=== PATIENT | female | born 1935 | race Caucasian/White ===

== ENCOUNTER 2016-07-28 00:38 | Day surgery (SDC) | payer MEDICARE, MEDICAID ==
[2016-07-28] VITALS (8 sets, daily range): BP systolic 133–175; BP diastolic 57–73; PULSE 57–66; RESP 12–24; O2SAT 98–99
[~2016-07-28] VITALS: Ht 265.4 cm; Wt 78.4 kg
[~2016-07-28 00:38] MED LIST: ATOR20TA PO; CHOL500011 PO; FUR20 PO; Heparin 1,000 Units/mL 2 mL Inj INJ SCH; IMAT400T PO; METO25TA6 PO; PROC5TAB50 PO; TRAM50TA2 PO
[2016-07-28] MEDS ORDERED: Ondansetron 2 mg/mL 2 mL Inj ONE (00:39)
[2016-07-28] MEDS ORDERED: Propofol 10,000 mCg/mL 20 mL Inj ONE (00:39)
[2016-07-28] MEDS ORDERED: Lactated Ringer's 1,000 ML IV SCH (05:00)
[2016-07-28] MEDS ORDERED: POLY17PO2 PO (06:53)
[2016-07-28] MEDS ORDERED: MAGN400O4 PO (06:53)
[2016-07-28] MEDS ORDERED: PROC5TAB PO (06:53)
[2016-07-28] MEDS ORDERED: MULT-666 PO (06:53)
[2016-07-28] MEDS ORDERED: SENN17.27 PO (06:53)
[2016-07-28] MEDS ORDERED: IMAT100T9 PO (06:53)
[2016-07-28] MEDS ORDERED: BISA10EN RC (06:53)
[2016-07-28 07:29] LABS: BASOPHILS % (AUTO) 0.2 % (0-3); EOSINOPHILS % (AUTO) 1.2 % (0-5); MONOCYTES % (AUTO) 4.5 % (4-12); Mean Corpuscular Hemoglobin 28.2 pg (27.0-35.0); Mean Corpuscular Volume 84.9 fL (81-100); NEUTROPHILS % (AUTO) 87.4 % (40-74); Platelet Count 322 bil/L (150-400)
[2016-07-28] MEDS ORDERED: IMAT400T7 PO (07:33)
[2016-07-28] MEDS ORDERED: Heparin 1,000 Units/mL 2 mL Inj INJ SCH (08:00)
--- NOTE | 2016-07-28 08:02 | PCM.HPANE ---
Patient Data Date of Service: Jul 28, 2016 Surgeon Admitting Provider: Attending Provider:Phillip gAudelo MD Primary Care Physician:Jemima Steve MD Other Provider:Jesse Burnett Anesthesia Reason for Visit Chronic Myeloid Leukemia Ht/WT & BMI Height (Feet): 8 Height (Inches): 8.50 Weight (Kilograms): 78.400 Body Mass Index 11.16 Allergies Coded Allergies: whey (Verified Allergy, Intermediate, 12/26/15) Rhame (Verified Allergy, Unknown, 12/26/15) RASH codeine (Verified Allergy, Unknown, RASH FROM YEARS AGO, 07/28/16) nausea and vomiting cortisone (Verified Allergy, Unknown, 12/26/15) strawberry (Verified Allergy, Unknown, 12/26/15) RASH Past Anesthesia History Anesthesia History: Denies:: Abnormal Airway, Anesthesia Reactions, Difficult Intubation Diabetes History Hx Diabetes?: No MRSA MRSA: No Medications Hypertension Medication: Yes Home Meds Incl Beta Judy: Yes Date Beta Judy Taken: Jul 28, 2016 Time Beta Judy Taken: 05:30 Active Scripts Metoprolol Tartrate 25 Mg Jatrox65 Mg PO BID #30 TABLET Prov:Rupesh Joseph MD 12/15/15 Reported Medications Imatinib Mesylate 400 Mg Xubgcn087 Mg PO DAILY 07/28/16 Magnesium Hydroxide (Milk of Magnesia)400 Mg/5 Ml Oral.qesz381 Mg PO 07/28/16 Atorvastatin (Lipitor)20 Mg Osfild45 Mg PO HS Ref 0 06/23/16 Furosemide 20 Mg Tab20 Mg PO prn for weight gain Ref 0 12/29/15 Tramadol 50 Mg Feqnin23 Mg PO Q6HRS PRN For Pain Ref 0 12/29/15 Discontinued Reported Medications Sennosides (Senna-Extra)17.2 Mg Vefvnm07.2 Mg PO HS 07/28/16 Prochlorperazine Maleate (Prochlorperazine)5 Mg Tablet5 Mg PO q6 PRN For Nausea/ Vomiting Ref 0 07/28/16 Polyethylene Glycol 3350 17 Gm Powd.pack17 Gm PO 07/28/16 Multivitamin (Once Daily)1 Each Tablet1 Each PO DAILY 07/28/16 Bisacodyl (Bisacodyl Rectal)10 Mg/30 Ml Enema10 Mg RC PRN PRN For Constipation 07/28/16 Imatinib Mesylate 100 Mg Fczoaq215 Mg PO DAILY 07/28/16 Cholecalciferol (Vitamin D3) (Vitamin D3)5,000 Unit Tablet5,000 Unit PO DAILY 03/01/16 Imatinib Mesylate (Gleevec)400 Mg Rczeip698 Mg PO DAILY 03/01/16 Prochlorperazine Maleate (Compazine)5 Mg Tablet5-10 Mg PO QID PRN For Nausea 12/11/15 History History of ENT Problems?: Yes HEENT History: Positive for:: Cataracts Dysphagia (recently) Denies:: Abnormal Airway Difficult Intubation Hearing Problem Hx of Heart Problems?: Yes Cardiovascular History: Positive for:: Hypertension Irregular Heartbeat (BRADYCARDIA, chronic afib) Denies:: Abdominal Aortic Aneurism Atrial Fibrillation Cardiac Surgery Chest Pain Congestive Heart Failure Edema Heart Murmur Pacemaker Rheumatic Fever Thrombophlebitis Valvular Heart Disease Other Cardiac History: "arrythmia" Hx of Respiratory Problem?: No Respiratory History: Denies:: Asthma COPD Chest Surgery Cough Dyspnea Emphysema Hemoptysis Oxygen Administration Pneumonia Pulmonary Embolism Tuberculosis Hx Neurologic Problems?: Yes Neurological History: Positive for:: CVA (TIA) Headaches (recent subdural bleed) Denies:: Alzheimer's Disease Dementia Dizziness Multiple Sclerosis Parkinson's Disease Seizures Hx of GI Problems?: No Gastrointestinal History: Denies:: Cirrhosis Diverticulitis Gastroesphageal Reflux Gastrointestinal Bleeding Heartburn Hepatitis Hiatal Hernia Rectal Bleeding Hx of Problems?: Yes Genitourinary History: Positive for:: Urinary Tract Infection (h/o E.coli UTI 11/2015) Denies:: HX of Hemodialysis Kidney Stones HX of Peritoneal Dialysis: No Female Hx: Denies:: Currently Endometriosis Pelvic Inflammatory Problems with Breasts? Skin History: Denies:: History Skin Disorders? Pressure Ulcers Hx Musculoskeletal Problems?: Yes Musculoskeletal History: Positive for:: Back Injury (bilat.sciatical pain) Denies:: Degenerative Joint Joint Replacement Musculoskeletal Trauma Systemic Lupus Hx of Psycho/Social Problems?: Yes Psycho Social History: Positive for:: Hx Depression Denies:: Anxiety Bipolar Disorder Suicide Attempt Hx Surgeries?: Yes (TONSILS, HYSTERECTOMY, APPY, ) Hx Any Other Health Problems?: Yes Other History: Positive for:: Cancer (chronic myel.leukemia) Hospitalization Thyroid Disease (s/p thyroidectomy) Denies:: Endocrine Disease History Blood Transfusions: Positive for:: Accept Blood Products? Blood Transfuse Reaction Blood Transfusions Hx Diabetes: No Hx Alcohol Use: NoHx Substance Use: No Smoking Status: Never Smoker Have You Smoked inLast 12 mo: No Stop/Bang Treated for Sleep Apnea?: No Do You Have a CPAP Machine?: No S-Snoring: Do You Snore Loudly: No T-Tired: feel tired, fatigued: No O-Obsered: Observed not breath: No P-Blood Pressure: treated: Yes B- Body Mass Index > 35 kg/m2: No A- Age over 50: No N- Neck Large Circumference: No G- Gender Male: No RAFI Risk Assessment: Low Risk, <3 Yes Risk Assessment Category Category 1A: Patient has history of documented sleep apnea, and HAS NOT received any narcotic, sedative or anesthesia administration during this stay. Category 1B: Patient has history of documented sleep apnea, and HAS received any narcotic , sedative or anesthesia administration during this stay Category 2: Patient has SUSPECTED Obstructive Sleep Apnea, and HAS received any narcotic , sedative or anesthesia administration during this stay. Category 3: Patient has SUSPECTED Obstructive Sleep Apnea and HAS NOT received narcotic, sedative or anesthesia administration during this stay. Category 4: Outpatient in Procedural Areas with known sleep apnea or who screen positive for High Risk via the STOP/BANG questionnaire. Exam Exam Vital Signs Vital Signs Date Time Temp Pulse Resp B/P Pulse Ox O2 Delivery O2 Flow Rate FiO2 07/28/16 07:19 36.8 57 24 175/71 99 Room Air General Appearance: Alert, Cooperative, Mild Distress HEENT/AIRWAY: MP 1 Lungs: Clear to Auscultation Heart: Exam Unremarkable Meds/Labs/Diagnostics Labs Test 07/28/16 07:00 White Blood Count 10.2th/mm3 (3.8-10.1) Red Blood Count 5.04mil/mm3 (3.90-5.20) Hemoglobin 14.2g/dL (12.0-15.6) Hematocrit 42.8% (35.0-46.0) Mean Corpuscular Volume 84.9fL (81-100) Mean Corpuscular Hemoglobin 28.2pg (27.0-35.0) Mean Corpuscular Hemoglobin Concent 33.2% (32.0-37.0) Red Cell Distribution Width 16.3% (12.3-15.4) Platelet Count 322bil/L (150-400) Neutrophils (%) (Auto) 87.4% (40-74) Lymphocytes (%) (Auto) 6.5% (14-46) Monocytes (%) (Auto) 4.5% (4-12) Eosinophils (%) (Auto) 1.2% (0-5) Basophils (%) (Auto) 0.2% (0-3) Plan Impression Patient chart reviewed, patient interviewed and anesthestic plan with risks, benefits, and alternatives discussed, and informed consent obtained. ASA Physical Status: ASA3 Severe Disease Anesthetic Plan: MAC Bene/Risks/Altern/Consents: Yes HP Complete Prior to Induction: Yes Laith Traore MD Jul 28, 2016 08:01
--- NOTE | 2016-07-28 09:14 | PCM.ANEP2 ---
Post Anesthesia Evaluation ASA/CMS Post Anesthesia VS in Patient's Normal Range?: Yes Resp Stable; Airway Patent?: Yes CV Function & Hydration Stable: Yes Mental Status Recovered?: Yes Pain control Satisfactory?: Yes N/V Control Satisfactory?: Yes Additional Comments mental status returned to baseline. On my exam, this was non focal neurological deficits; however, moderately advanced dementia. Per Dr Agudelo, this represents a significant change for this patient. I have made him aware of my assessment. Laith Traore MD Jul 28, 2016 09:14
--- NOTE | 2016-07-28 10:06 | NUR ---
Pt assisted out of bed, no complaints of pain at biopsy site.Discharge instructions reviewed with patient and . Pt encouraged to contact primary doctor if left great toe pain continues. Her walker fell on the left big toe, it is red and swollen and very painful. Dr Traore recommended that she see her primary for xray of toe.Dr Agudelo aware.
--- NOTE | 2016-08-20 15:02 | CCS NOTE ---
[facility] [address] [address] MEDICAL ONCOLOGY OFFICE NOTE PATIENT: HOLA HERCULES : 1935 MR#: [id number] DATE: 07/28/2016 JOB ID: [id number] DATE: 07/28/2016 PROCEDURE: Bone marrow aspiration and biopsy, RPIC. This procedure was done with the patient on her side and under conscious sedation with the assistance of anesthesia. 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 PROCEDURE: After informed consent was obtained, the patient was placed on her side and was placed under conscious sedation. The RPIC was prepped with chlorhexidine and 7 cc of 2% lidocaine used for local anesthesia. Following this, a small macie was made in the skin with a #11 blade; following this, a 14-gauge sternal needle was used to obtain a 5 cc aspirate for Russell Giemsa stain flow cytometry, FISH and cytogenetics. Following this an 11-gauge Jamshidi needle was used to obtain a 1 cm core biopsy. COMPLICATIONS: None. Followup to be in one week.
[2016-09-20] MEDS ORDERED: DASA100T PO (12:11)
== END 2016-07-28 23:59 | disposition home or self-care (01) ==
LOC: SOUO 00:38
DX: C92.10 Chronic myeloid leukemia, BCR/ABL-positive, not having achieved remission (principal); I48.91 Unspecified atrial fibrillation; I10 Essential (primary) hypertension; I50.20 Unspecified systolic (congestive) heart failure
CPT/HCPCS: 36415; 85025; J2405

== ENCOUNTER 2016-09-06 01:06 | Day surgery (SDC) | payer MEDICARE, MEDICAID ==
[~2016-09-06] VITALS: Ht 174 cm; Wt 75.8 kg
[~2016-09-06 01:06] MED LIST changes: -CHOL500011 PO; -Heparin 1,000 Units/mL 2 mL Inj INJ SCH; -IMAT400T PO; +IMAT400T7 PO; +MAGN400O4 PO; -PROC5TAB50 PO
[2016-09-06] MEDS ORDERED: Ketamine 10 mg/mL 20 mL Inj ONE (01:07)
[2016-09-06] MEDS ORDERED: Propofol 10,000 mCg/mL 20 mL Inj ONE (01:07)
[2016-09-06] MEDS ORDERED: Lactated Ringer's 1,000 ML IV SCH (05:00)
[2016-09-06 12:34] VITALS: BP 185/77; PULSE 55; RESP 17; O2SAT 100
[2016-09-06 12:36] LABS: BASOPHILS % (AUTO) 0.6 % (0-3); EOSINOPHILS % (AUTO) 1.6 % (0-5); MONOCYTES % (AUTO) 5.6 % (4-12); Mean Corpuscular Hemoglobin 28.3 pg (27.0-35.0); NEUTROPHILS % (AUTO) 82.4 % (40-74); Platelet Count 281 bil/L (150-400)
--- NOTE | 2016-09-06 12:45 | NUR ---
Patient admitted for bone biopsy to be done with Dr Agudelo under MAC with anesthesiologist. Her has come in with her and will return to take her home.
[2016-09-06 13:00] LABS: INR 1.09 ratio
[2016-09-06 14:20] VITALS: BP 122/56; PULSE 57; RESP 20; O2SAT 98
[2016-09-06 14:25] VITALS: BP 128/57; PULSE 55; RESP 25; O2SAT 98
[2016-09-06 14:30] VITALS: BP 129/37; PULSE 61; RESP 19; O2SAT 99
[2016-09-06 14:40] VITALS: BP 172/86; PULSE 68; RESP 21; O2SAT 99
[2016-09-06 14:54] VITALS: BP 180/80; PULSE 72; RESP 17; O2SAT 99
--- NOTE | 2016-09-06 15:05 | NUR ---
Discharge instructions reviewed with patient and spouse. She is dischraged ambulatory using walker with in attendance.
[2016-09-20] MEDS ORDERED: DASA100T PO (12:11)
== END 2016-09-06 23:59 | disposition home or self-care (01) ==
LOC: SOUO 01:06
DX: C92.10 Chronic myeloid leukemia, BCR/ABL-positive, not having achieved remission (principal)